=== PATIENT | female | born 1965 | race African-American/Black ===

== ENCOUNTER 2016-11-06 23:14 | Emergency (ER) | payer OTHER ==
[~2016-11-06] VITALS: Ht 167.6 cm; Wt 107.0 kg
[~2016-11-06 23:14] MED LIST: AMLO-512 PO; ASPI-1093 PO; ATOR40TA28 PO; BECL8.7A5 IH; COMBIH IH; DOXY50CA7 PO; HYD25 PO; HYDR-3707 PO; LISI-662 PO; METF10002 PO; NAPR-58 PO; SERT50TA12 PO; SULF1TAB42 PO
[2016-11-06 23:32] LABS: GLUCOSE,POINT OF CARE 221 MG/DL (70-110)
[2016-11-06 23:51] LABS: BASOPHILS # (AUTO) 0.03 K/uL (0.00-0.20); BASOPHILS % (AUTO) 0.4 % (0.0-2.0); EOSINOPHILS # (AUTO) 0.09 K/uL (0.00-0.70); EOSINOPHILS % (AUTO) 1.09 % (1.0-6.0); HEMATOCRIT 38.9 % (36-46); HEMOGLOBIN 12.9 g/dL (12.0-16.0); LYMPHOCYTES # (AUTO) 2.3 K/uL (1.0-4.8); LYMPHOCYTES % (AUTO) 28.2 % (22.0-44.0); MEAN CORPUSCULAR HEMOGLOBIN 28.9 pg (26.0-34.0); MEAN CORPUSCULAR HGB CONC 33.1 G/dL (31.0-37.0); MEAN CORPUSCULAR VOLUME 87 fL (80-100); MONOCYTES # (AUTO) 0.5 K/uL (0.1-1.0); MONOCYTES % (AUTO) 6.2 % (2.0-9.0); NEUTROPHILS # (AUTO) 5.3 K/uL (1.8-7.7); NEUTROPHILS % (AUTO) 64.2 % (40.0-70.0); PLATELET COUNT (AUTO) 369 K/uL (150-450); RED BLOOD CELL COUNT(AUTO) 4.46 MIL/uL (4.00-5.20); RED CELL DISTRIBUTION WIDTH 13.7 % (11.5-14.5); WHITE BLOOD COUNT (AUTO) 8.2 K/uL (4.5-11.0)
[2016-11-07] LABS: ANION GAP 11 mmol/L (8-16); CARBON DIOXIDE 25 mmol/L (22-29); CHLORIDE 101 mmol/L (98-107); CREATININE 0.78 mg/dL (0.60-1.30); GLOMERULAR FILTR. RATE CALC > 60 mL/min (>60); POTASSIUM 3.6 mmol/L (3.5-5.1); SODIUM SERUM 137 mmol/L (136-145); UREA NITROGEN, BLOOD 4 mg/dL (7-18)
[2016-11-07 00:05] LABS: PROTHROMBIN TIME 10.6 SEC (9.4-11.6)
[2016-11-07 00:15] LABS: B-TYPE NATRIURETIC PEPTIDE 133 pg/mL (0-100)
[2016-11-07 00:25] LABS: ALANINE AMINOTRANSFERASE 51 U/L (12-78); ALBUMIN 2.8 g/dL (3.4-5.0); ASPARTATE AMINOTRANSFERASE 20 U/L (15-37); BILIRUBIN,TOTAL 0.3 mg/dL (0.1-1.0); CREATINE KINASE, TOTAL 99 U/L (26-192); TOTAL PROTEIN, SERUM 7.4 g/dL (6.4-8.2)
[2016-11-07 00:26] LABS: CREATINE KINASE MB < 0.5 ng/mL (0-5)
[2016-11-07 00:40] LABS: APPEARANCE,URINE CLOUDY (CLEAR); GLUCOSE, URINE (UA) 500 mg/dL (NEGATIVE); KETONES,URINE TRACE mg/dL (NEGATIVE); LEUKOCYTE ESTERASE ,URINE NEGATIVE (NEGATIVE); OCCULT BLOOD,URINE TRACE (NEGATIVE); PROTEIN,URINE TRACE (NEGATIVE)
[2016-11-07 00:41] LABS: ADD UA MICROSCOPIC YES
[2016-11-07 01:05] LABS: SQUAMOUS EPITHELIAL CELL,UR Moderate /LPF (None Seen)
[2016-11-07 02:26] VITALS: BP 160/99
== END 2016-11-07 02:29 | disposition home or self-care (01) ==
LOC: EMS 23:15
DX: R07.89 Other chest pain (principal); I10 Essential (primary) hypertension; E78.00 Pure hypercholesterolemia, unspecified; E11.9 Type 2 diabetes mellitus without complications; J45.909 Unspecified asthma, uncomplicated; F17.210 Nicotine dependence, cigarettes, uncomplicated; Z79.82 Long term (current) use of aspirin
CPT/HCPCS: 82962; 93005; 99285

== ENCOUNTER 2018-05-23 11:59 | Emergency (ER) | payer OTHER ==
[~2018-05-23] VITALS: Ht 165.1 cm; Wt 81.8 kg
[~2018-05-23 11:59] MED LIST changes: -ASPI-1093 PO; +ASPI-1182 PO; +METF-446 PO; -METF10002 PO
[2018-05-23] MEDS ORDERED: ONDANSETRON HCL 4 MG/2 ML VIAL IVP ONE (14:30)
[2018-05-23] MEDS ORDERED: IPRATROPIUM BROMIDE 0.5 MG/2.5 ML NEB SOLUTION NEB ONE (14:30)
[2018-05-23] MEDS ORDERED: KETOROLAC TROMETHAMINE 30 MG/ML VIAL IVP ONE ×2 (14:30→15:45)
[2018-05-23] MEDS ORDERED: ALBUTEROL SULFATE 2.5 MG/0.5 ML NEB SOLUTION NEB ONE (14:30)
[2018-05-23] MEDS ORDERED: BUPIVACAINE HCL/PF 0.25% 10 ML VIAL INJ ONE (14:30)
[2018-05-23] MEDS ORDERED: MethylPREDNISolone SOD SUCC 125 MG/2 ML VIAL IVP ONE (14:30)
[2018-05-23 15:22] LABS: ANION GAP 8 mmol/L (8-16); CALCIUM, TOTAL 9.3 mg/dL (8.8-10.5); CARBON DIOXIDE 29 mmol/L (22-29); CHLORIDE 102 mmol/L (98-107); CREATININE 0.85 mg/dL (0.60-1.30); GLOMERULAR FILTR. RATE CALC > 60 mL/min (>60); GLUCOSE,RANDOM 153 mg/dL (70-110); LACTIC ACID 1.6 mmol/L (0.4-2.0); POTASSIUM 3.3 mmol/L (3.5-5.1); SODIUM SERUM 139 mmol/L (136-145); UREA NITROGEN, BLOOD 9 mg/dL (7-18)
[2018-05-23 15:29] LABS: ALANINE AMINOTRANSFERASE 37 U/L (12-78); ALBUMIN 3.5 g/dL (3.4-5.0); ALKALINE PHOSPHATASE 78 U/L (46-116); ASPARTATE AMINOTRANSFERASE 28 U/L (15-37); BILIRUBIN,TOTAL 0.5 mg/dL (0.1-1.0); LIPASE 149 U/L (73-393); TOTAL PROTEIN, SERUM 7.9 g/dL (6.4-8.2)
[2018-05-23 15:38] LABS: BASOPHILS % (AUTO) 0.7 % (0.0-2.0); EOSINOPHILS % (AUTO) 2.5 % (1.0-6.0); HEMATOCRIT 43.3 % (36-46); HEMOGLOBIN 14.6 g/dL (12.0-16.0); LYMPHOCYTES % (AUTO) 44.4 % (22.0-44.0); MEAN CORPUSCULAR HEMOGLOBIN 29.8 pg (26.0-34.0); MEAN CORPUSCULAR HGB CONC 33.9 G/dL (31.0-37.0); MEAN CORPUSCULAR VOLUME 88 fL (80-100); MONOCYTES # (AUTO) 0.6 K/uL (0.1-1.0); MONOCYTES % (AUTO) 9.1 % (2.0-9.0); NEUTROPHILS # (AUTO) 2.9 K/uL (1.8-7.7); NEUTROPHILS % (AUTO) 43.3 % (40.0-70.0); PLATELET COUNT (AUTO) 177 K/uL (150-450); RED BLOOD CELL COUNT(AUTO) 4.91 MIL/uL (4.00-5.20)
[2018-05-23 15:57] LABS: B-TYPE NATRIURETIC PEPTIDE 182 pg/mL (0-100)
[2018-05-23 16:08] LABS: GLUCOSE, CSF 90 mg/dL (50-80); TOTAL PROTEIN, CSF 60 mg/dL (15-45)
[2018-05-23 17:57] LABS: APPEARANCE,CSF CLEAR (CLEAR); COLOR,CSF COLORLESS (COLORLESS); CSF TUBE NUMBER 1
[2018-05-23 17:58] LABS: LYMPHOCYTES1,CSF 68 %; NEUTROPHILS1,CSF 30 %
[2018-05-23 17:59] LABS: MONOCYTES1,CSF 2 %; OTHER CELLS,CSF 0
[2018-05-23 18:00] LABS: APPEARANCE2,CSF CLEAR (CLEAR); COLOR2,CSF COLORLESS (COLORLESS); CSF 2ND TUBE NUMBER 4
[2018-05-23 18:01] LABS: LYMPHOCYTES2,CSF 60 %; MONOCYTES2,CSF 0 %; NEUTROPHILS2,CSF 40 %; OTHER CELLS,CSF 2ND 0
[2018-05-23 18:15] VITALS: BP 144/90
[2018-05-23] MEDS ORDERED: LORazepam 1 MG TABLET PO ONE (18:15)
[2018-05-23] MEDS ORDERED: POTASSIUM CHLORIDE 10% 40 MEQ/30 ML LIQUID UDCUP PO ONE (18:15)
[2018-05-23] MEDS ORDERED: SERT100T12 PO (18:18)
[2018-05-23] MEDS ORDERED: DOXY100C40 PO (18:18)
== END 2018-05-23 19:05 | disposition home or self-care (01) ==
LOC: EMS 12:00
DX: J44.1 Chronic obstructive pulmonary disease with (acute) exacerbation (principal); E87.6 Hypokalemia; G89.29 Other chronic pain; M54.5 Low back pain; R51 Headache; F41.9 Anxiety disorder, unspecified; I10 Essential (primary) hypertension; E78.00 Pure hypercholesterolemia, unspecified; E11.9 Type 2 diabetes mellitus without complications; F32.9 Major depressive disorder, single episode, unspecified; F17.210 Nicotine dependence, cigarettes, uncomplicated; Z79.82 Long term (current) use of aspirin; Z79.899 Other long term (current) drug therapy
CPT/HCPCS: 36415; 62270; 70450; 71045; 80053; 82945; 83605; 83690; 83880; 84157; 84484; 85025; 87040; 87070; 87205; 89051; 93005; 94640; 96374; 96375; 96376; 99285; 99406; G0480; J1885; J2405; J2930; J3490

== ENCOUNTER 2019-07-14 23:24 | Inpatient (IN) | payer OTHER ==
[~2019-07-14] VITALS: Ht 170.2 cm; Wt 111.6 kg
[~2019-07-14 23:24] MED LIST changes: -AMLO-512 PO; +AMLO10TA7 PO; +ASPI-1111 PO; -ASPI-1182 PO; +DOXY100C40 PO; -DOXY50CA7 PO; -HYDR-3707 PO; +HYDR-3708 PO; +NAPR-1025 PO; -NAPR-58 PO; +SERT100T12 PO; -SERT50TA12 PO
[2019-07-15 00:03] LABS: BASOPHILS % (AUTO) 1.2 % (0.0-2.0); EOSINOPHILS % (AUTO) 2.4 % (1.0-6.0); HEMATOCRIT 41.3 % (36-46); HEMOGLOBIN 13.7 g/dL (12.0-16.0); LYMPHOCYTES % (AUTO) 49.2 % (22.0-44.0); MEAN CORPUSCULAR HEMOGLOBIN 28.6 pg (26.0-34.0); MEAN CORPUSCULAR HGB CONC 33.1 G/dL (31.0-37.0); MEAN CORPUSCULAR VOLUME 86 fL (80-100); MONOCYTES # (AUTO) 0.4 K/uL (0.1-1.0); MONOCYTES % (AUTO) 7.2 % (2.0-9.0); NEUTROPHILS # (AUTO) 2.5 K/uL (1.8-7.7); PLATELET COUNT (AUTO) 189 K/uL (150-450); RED BLOOD CELL COUNT(AUTO) 4.78 MIL/uL (4.00-5.20); RED CELL DISTRIBUTION WIDTH 13.4 % (11.5-14.5)
[2019-07-15 00:15] LABS: ANION GAP 10 mmol/L (8-16); CALCIUM, TOTAL 8.7 mg/dL (8.8-10.5); CARBON DIOXIDE 25 mmol/L (22-29); CHLORIDE 100 mmol/L (98-107); CREATININE 0.86 mg/dL (0.60-1.30); GLOMERULAR FILTR. RATE CALC > 60 mL/min (>60); POTASSIUM 3.7 mmol/L (3.5-5.1); SODIUM SERUM 135 mmol/L (136-145); UREA NITROGEN, BLOOD 13 mg/dL (7-18)
[2019-07-15 00:17] LABS: GLUCOSE,RANDOM 422 mg/dL (70-110)
[2019-07-15] MEDS ORDERED: MAGNESIUM SULFATE 2 GM/WATER 50 ML IV ONE (00:30)
[2019-07-15] MEDS ORDERED: SODIUM CHLORIDE 0.9% 1,000 ML IV ONE (00:30)
[2019-07-15 00:44] LABS: GLUCOSE,POINT OF CARE 382 MG/DL (70-110)
[2019-07-15] MEDS ORDERED: PREG50 PO (01:06)
[2019-07-15] MEDS ORDERED: TRAZ-186 PO (01:06)
[2019-07-15] MEDS ORDERED: OXYB5XL PO (01:06)
[2019-07-15] MEDS ORDERED: IPRA4AER IH (01:06)
[2019-07-15] MEDS ORDERED: CARV3 PO (01:06)
[2019-07-15] MEDS ORDERED: PIOG45TA4 PO (01:06)
[2019-07-15] MEDS ORDERED: DULA1.5P SQ (01:06)
[2019-07-15] MEDS ORDERED: PRAZ2 PO (01:06)
[2019-07-15] MEDS ORDERED: ARIP10TA8 PO (01:06)
[2019-07-15] MEDS ORDERED: FURO40 PO (01:06)
[2019-07-15] MEDS ORDERED: HYDR-1475 PO (01:06)
[2019-07-15] MEDS ORDERED: ALBU8.5H8 IH (01:06)
[2019-07-15] MEDS ORDERED: LOSA-88 PO (01:06)
[2019-07-15] MEDS ORDERED: HYDR-4031 PO (01:06)
[2019-07-15] MEDS ORDERED: EMPA25TA PO (01:06)
[2019-07-15] MEDS ORDERED: LIDO1ADH48 TP (01:06)
[2019-07-15] MEDS ORDERED: FLUT1AER8 IH (01:06)
[2019-07-15] MEDS ORDERED: SERT100T12 PO (01:06)
[2019-07-15] MEDS ORDERED: LIDOCAINE 5% TRANSDERMAL PATCH TD ONE (02:30)
[2019-07-15] MEDS ORDERED: ACETAMINOPHEN 500 MG TABLET PO ONE (02:30)
[2019-07-15] MEDS ORDERED: ONDANSETRON HCL 4 MG/2 ML VIAL IVP PRN ×2 (04:45→11:45)
[2019-07-15] MEDS ORDERED: ACETAMINOPHEN 325 MG TABLET PO PRN ×2 (04:45→11:45)
[2019-07-15] MEDS ORDERED: 0.9% SODIUM CHLORIDE 10 ML SYRINGE IVP PRN (04:45)
[2019-07-15 07:51] LABS: GLUCOSE,POINT OF CARE 317 MG/DL (70-110)
[2019-07-15 10:14] LABS: GLUCOSE,POINT OF CARE 434 MG/DL (70-110)
[2019-07-15] MEDS ORDERED: INSULIN LISPRO 100 UNITS/ML SQ PRN (10:15)
[2019-07-15] MEDS ORDERED: DEXTROSE 50%-WATER 25 GM/50 ML SYRINGE IVP PRN ×2 (10:15→11:45)
[2019-07-15 11:03] LABS: GLUCOSE,POINT OF CARE 394 MG/DL (70-110)
[2019-07-15] MEDS ORDERED: HYDROCODONE/ACETAMINOPHEN 5-325 MG TABLET PO PRN (11:45)
[2019-07-15] MEDS ORDERED: MAGNESIUM HYDROXIDE SUSPENSION 30 ML UDCUP PO PRN (11:45)
[2019-07-15] MEDS ORDERED: ZOLPIDEM TARTRATE 5 MG TABLET PO PRN (11:45)
[2019-07-15] MEDS ORDERED: BISACODYL 10 MG RECTAL RECTAL SUPPOSITORY PR PRN (11:45)
[2019-07-15] MEDS ORDERED: MORPHINE SULFATE 2 MG/ML SYRINGE IVP PRN (11:45)
[2019-07-15 13:19] VITALS: BP 159/86
[2019-07-15 15:49] VITALS: BP 144/72
[2019-07-15] MEDS: HEPARIN SODIUM,PORCINE 5,000 UNITS/ML VIAL SQ SCH (16:22)
[2019-07-15] MEDS: PREGABALIN 50 MG CAPSULE PO SCH ×2 (16:22→20:44)
[2019-07-15] MEDS: INSULIN LISPRO 100 UNITS/ML SQ PRN ×2 (17:27→20:50)
[2019-07-15 18:23] LABS: GLUCOMETER DEV NAME(LOC) 5S.2A; GLUCOSE,POINT OF CARE 244 MG/DL (70-110)
[2019-07-15 20:27] VITALS: BP 129/83
[2019-07-15] MEDS: NAPROXEN 500 MG TABLET PO SCH (20:44)
[2019-07-15] MEDS: CARVEDILOL 3.125 MG TABLET PO SCH (20:44)
[2019-07-15] MEDS: HydrOXYzine PAMOATE 25 MG CAPSULE PO SCH (20:44)
[2019-07-15] MEDS: OXYBUTYNIN CHLORIDE 5 MG TABLET PO SCH (20:44)
[2019-07-15] MEDS: DOCUSATE SODIUM 100 MG CAPSULE PO SCH (20:44)
[2019-07-15] MEDS ORDERED: PRAZOSIN HCL 2 MG CAPSULE PO SCH (21:00)
[2019-07-15] MEDS ORDERED: TraZODone HCL 100 MG TABLET PO SCH (21:00)
[2019-07-16 00:23] VITALS: BP 112/63
[2019-07-16] MEDS: HEPARIN SODIUM,PORCINE 5,000 UNITS/ML VIAL SQ SCH ×3 (00:37→16:00)
[2019-07-16 00:57] LABS: GLUCOMETER DEV NAME(LOC) 5S.2A; GLUCOSE,POINT OF CARE 323 MG/DL (70-110)
[2019-07-16 04:40] VITALS: BP 107/65
[2019-07-16] MEDS: INSULIN LISPRO 100 UNITS/ML SQ PRN ×3 (05:34→17:18)
[2019-07-16 06:05] LABS: GLUCOMETER DEV NAME(LOC) 5S.2A; GLUCOSE,POINT OF CARE 343 MG/DL (70-110)
[2019-07-16 06:53] LABS: BASOPHILS % (AUTO) 0.6 % (0.0-2.0); EOSINOPHILS % (AUTO) 2.9 % (1.0-6.0); HEMATOCRIT 41.9 % (36-46); HEMOGLOBIN 13.9 g/dL (12.0-16.0); LYMPHOCYTES # (AUTO) 2.5 K/uL (1.0-4.8); LYMPHOCYTES % (AUTO) 57.3 % (22.0-44.0); MEAN CORPUSCULAR HEMOGLOBIN 28.7 pg (26.0-34.0); MEAN CORPUSCULAR HGB CONC 33.1 G/dL (31.0-37.0); MEAN CORPUSCULAR VOLUME 87 fL (80-100); MONOCYTES # (AUTO) 0.3 K/uL (0.1-1.0); NEUTROPHILS # (AUTO) 1.5 K/uL (1.8-7.7); NEUTROPHILS % (AUTO) 33.2 % (40.0-70.0); PLATELET COUNT (AUTO) 190 K/uL (150-450); RED BLOOD CELL COUNT(AUTO) 4.83 MIL/uL (4.00-5.20); RED CELL DISTRIBUTION WIDTH 13.6 % (11.5-14.5)
[2019-07-16 07:04] LABS: ANION GAP 8 mmol/L (8-16); CALCIUM, TOTAL 8.7 mg/dL (8.8-10.5); CARBON DIOXIDE 26 mmol/L (22-29); CHLORIDE 98 mmol/L (98-107); CHOL/HDL RATIO 6.3 (3.9-5.7); CHOLESTEROL 239 mg/dL (131-200); CREATININE 0.66 mg/dL (0.60-1.30); GLOMERULAR FILTR. RATE CALC > 60 mL/min (>60); GLUCOSE,RANDOM 306 mg/dL (70-110); HDL CHOLESTEROL 38 mg/dL (40-60); LDL CHOL (CALC.) 161 mg/dL (0-130); POTASSIUM 4.1 mmol/L (3.5-5.1); SODIUM SERUM 132 mmol/L (136-145); TRIGLYCERIDES 201 mg/dL (15-150); UREA NITROGEN, BLOOD 13 mg/dL (7-18)
[2019-07-16 07:37] VITALS: BP 127/73
[2019-07-16] MEDS: DOCUSATE SODIUM 100 MG CAPSULE PO SCH (09:00)
[2019-07-16] MEDS ORDERED: FUROSEMIDE 40 MG TABLET PO SCH (09:00)
[2019-07-16] MEDS ORDERED: PANTOPRAZOLE SODIUM 40 MG DR TABLET PO SCH (09:00)
[2019-07-16] MEDS ORDERED: ASPIRIN 81 MG EC TABLET PO SCH (09:00)
[2019-07-16] MEDS ORDERED: ATORVASTATIN CALCIUM 40 MG TABLET PO SCH (09:00)
[2019-07-16] MEDS ORDERED: MISC MED-CONVERTED FROM AMBULATORY (Empagliflozin (Jardiance) 25 MG) PO SCH (09:00)
[2019-07-16] MEDS: OXYBUTYNIN CHLORIDE 5 MG TABLET PO SCH (09:00)
[2019-07-16] MEDS ORDERED: PIOGLITAZONE HCL 45 MG TABLET PO SCH (09:00)
[2019-07-16] MEDS ORDERED: SERTRALINE HCL 100 MG TABLET PO SCH (09:00)
[2019-07-16] MEDS ORDERED: HYDROCHLOROTHIAZIDE 25 MG TABLET PO SCH (09:00)
[2019-07-16] MEDS ORDERED: ARIPiprazole 10 MG TABLET PO SCH (09:00)
[2019-07-16] MEDS ORDERED: LOSARTAN POTASSIUM 50 MG TABLET PO SCH (09:00)
[2019-07-16] MEDS: CARVEDILOL 3.125 MG TABLET PO SCH (09:01)
[2019-07-16] MEDS: PREGABALIN 50 MG CAPSULE PO SCH ×2 (09:03→16:48)
[2019-07-16] MEDS: NAPROXEN 500 MG TABLET PO SCH (09:03)
[2019-07-16] MEDS: HydrOXYzine PAMOATE 25 MG CAPSULE PO SCH (09:08)
[2019-07-16] MEDS ORDERED: MAGNESIUM OXIDE 400 MG TABLET PO PRN (09:15)
[2019-07-16] MEDS ORDERED: MAGNESIUM SULFATE 2 GM/WATER 50 ML IV PRN (09:15)
[2019-07-16] MEDS ORDERED: MAGNESIUM SULFATE 4 GM/WATER 100 ML IV PRN (09:15)
[2019-07-16 11:26] VITALS: BP 132/59
[2019-07-16 15:52] VITALS: BP 110/63
[2019-07-16 16:56] LABS: GLUCOMETER DEV NAME(LOC) 5S.2A; GLUCOSE,POINT OF CARE 324 MG/DL (70-110)
[2019-07-16] MEDS ORDERED: MAGNESIUM OXIDE 400 MG TABLET PO ONE (17:00)
[2019-07-16 20:01] LABS: GLUCOMETER DEV NAME(LOC) 5S.2A; GLUCOSE,POINT OF CARE 331 MG/DL (70-110)
[2019-07-22] MEDS ORDERED: MISC MED-CONVERTED FROM AMBULATORY (Dulaglutide (Trulicity) 1.5 MG) SQ SCH (09:00)
== END 2019-07-16 19:00 | disposition home or self-care (01) | DRG 203 ==
LOC: EMS 23:24 → 5S 07-15 10:57
PROVIDERS: ADMIT Internal Medicine; ATTEND Internal Medicine
DX: M94.0 Chondrocostal junction syndrome [Tietze] (principal); I11.0 Hypertensive heart disease with heart failure; I50.9 Heart failure, unspecified; E11.65 Type 2 diabetes mellitus with hyperglycemia; E78.5 Hyperlipidemia, unspecified; F32.9 Major depressive disorder, single episode, unspecified; E78.00 Pure hypercholesterolemia, unspecified; F17.210 Nicotine dependence, cigarettes, uncomplicated; F41.9 Anxiety disorder, unspecified; F43.10 Post-traumatic stress disorder, unspecified; E83.42 Hypomagnesemia; J44.9 Chronic obstructive pulmonary disease, unspecified; Z82.49 Family history of ischemic heart disease and other diseases of the circulatory system
CPT/HCPCS: 83735; 93005; 93306; 96365; J1644; J1815; J3475